=== PATIENT | female | born 1985 | race Caucasian/White ===

== ENCOUNTER 2018-06-14 15:56 | Emergency (ER) | payer OTHER ==
[~2018-06-14] VITALS: Ht 170.2 cm; Wt 59.0 kg
[2018-06-14 16:07] VITALS: Ht 170.2 cm; Wt 59.0 kg
[2018-06-14 16:31] LABS: BASOPHIL % 0.3 % (0-2); RED CELL DISTRIBUTION WIDTH 11.9 % (11.5-14.5)
[2018-06-14 16:32] LABS: PLATELET COUNT 408 x10^3mcL (130-400)
[2018-06-14 16:47] LABS: CARBON DIOXIDE 21.3 mmol/L (21-32); CHLORIDE SERUM 105 mmol/L (98-107); CREATININE SERUM 0.5 mg/dL (0.6-1.0); GFR1 > 60 mL/min; GLUCOSE SERUM 115 mg/dL (74-106); POTASSIUM SERUM 3.2 mmol/L (3.5-5.1); SODIUM SERUM 142 mmol/L (136-145)
[2018-06-14 16:52] LABS: ALBUMIN 3.8 g/dL (3.4-5.0); ALKALINE PHOSPHATASE 53 U/L (46-116); ALT/SGPT 26 U/L (14-59); AST/SGOT 15 U/L (15-37); BILIRUBIN TOTAL 0.1 mg/dL (0.20-1.00); MAGNESIUM 2.2 mg/dL (1.8-2.4); TOTAL PROTEIN, SERUM 7.5 g/dL (6.4-8.2)
[2018-06-14 20:30] VITALS: BP 112/69
== END 2018-06-14 20:30 | disposition home or self-care (01) ==
LOC: ED 15:56
PROVIDERS: Emergency Medicine
DX: F10.129 Alcohol abuse with intoxication, unspecified (principal)
CPT/HCPCS: G0480; J3411; J3475; J3490; J7030